=== PATIENT | male | born 1985 | race Caucasian/White ===

== ENCOUNTER 2024-10-02 21:19 | Emergency (ER) | payer MEDICAID ==
[~2024-10-02] VITALS: Ht 172.7 cm; Wt 102.0 kg
[2024-10-02 21:31] VITALS: O2SAT 100
[2024-10-02] MEDS ORDERED: NALO4SPR BOTHNSTRLS (21:59)
[2024-10-02 22:38] VITALS: BP 138/92; PULSE 98; RESP 26; TEMP 37.1; O2SAT 100
== END 2024-10-02 22:59 | disposition home or self-care (01) ==
LOC: ER 21:19
DX: T40.411A Poisoning by fentanyl or fentanyl analogs, accidental (unintentional), initial encounter (principal); T40.2X1A Poisoning by other opioids, accidental (unintentional), initial encounter; I10 Essential (primary) hypertension; F17.200 Nicotine dependence, unspecified, uncomplicated; F11.90 Opioid use, unspecified, uncomplicated; Y92.89 Other specified places as the place of occurrence of the external cause
CPT/HCPCS: 99283